=== PATIENT | female | born 1995 | race Caucasian/White ===

== ENCOUNTER 2018-02-08 19:59 | Emergency (ER) | payer MEDICAID ==
[~2018-02-08] VITALS: Ht 175.3 cm; Wt 99.8 kg
[2018-02-08 20:05] VITALS: BP 169/91
[2018-02-08 21:05] VITALS: BP 140/90
== END 2018-02-08 21:06 | disposition home or self-care (01) ==
LOC: MED 19:59
DX: N39.0 Urinary tract infection, site not specified (principal); D64.9 Anemia, unspecified; Z90.49 Acquired absence of other specified parts of digestive tract
CPT/HCPCS: 81002; 81025; 99283